=== PATIENT | female | born 1995 | race Caucasian/White ===

== ENCOUNTER 2016-09-29 17:24 | Emergency (ER) | payer OTHER ==
[~2016-09-29] VITALS: Ht 172.7 cm; Wt 65.8 kg
[2016-09-29 17:40] VITALS: BP 126/77
[2016-09-29] MEDS ORDERED: diphenhydrAMINE HCL ELIX 25 MG/10 ML UDC PO ONE (18:00)
[2016-09-29] MEDS ORDERED: predniSONE 20 MG TABLET PO ONE (18:00)
[2016-09-29] MEDS ORDERED: diphenhydrAMINE HCL ELIX 25 MG/10 ML UDC ONE (18:07)
[2016-09-29] MEDS ORDERED: predniSONE 20 MG TABLET ONE (18:07)
== END 2016-09-29 18:30 | disposition home or self-care (01) ==
LOC: ER 17:26
DX: T78.40XA Allergy, unspecified, initial encounter (principal); M41.9 Scoliosis, unspecified; F10.20 Alcohol dependence, uncomplicated; F17.210 Nicotine dependence, cigarettes, uncomplicated
CPT/HCPCS: A4606; Q0163; Z7610